=== PATIENT | male | born 1950 | race Caucasian/White ===

== ENCOUNTER 2017-06-27 07:59 | Emergency (ER) | payer MEDICARE ==
[2017-06-27 08:09] VITALS: BP 131/87
--- NOTE | 2017-06-27 08:58 | UC ---
Complaint Male HPI - HPI Summary HPI Summary: URINARY RETENTION X 1 DAY COULD NOT URINATE THIS MORNING , + BURNING, LOWER ABDOMINAL PRESSURE NO FEVER, NO CHILLS - History of Current Complaint Chief Complaint: UCGU Stated Complaint: URINARY COMPLAINT Time Seen by Provider: 06/27/17 08:11 Hx Obtained From: Patient Onset/Duration: Sudden Onset, Lasting Days - 1, Still Present Timing: Constant Severity Initially: Moderate Severity Currently: Severe Location: Penis Character: Sharp, Burning Aggravating Factor(s): Voiding Alleviating Factor(s): Nothing Associated Signs And Symptoms: Negative: Diaphoresis, Back Pain, Fever, Hematuria, Dysuria, Constipation, Blood in Stool, Rectal Pain, Appetite, Nausea , Vomiting(# Of Episodes =), Penile Swelling, Penile Discharge - Allergies/Home Medications Allergies/Adverse Reactions: Allergies Allergy/AdvReac Type Severity Reaction Status Date / Time Sodium Perborate Allergy Intermediate Unknown Verified 07/18/16 15:10 Reaction Details Statins Allergy Intermediate Unknown Verified 07/18/16 15:10 Reaction Details Sulfa Drugs Allergy Intermediate Unknown Verified 07/18/16 15:10 Reaction Details Diphenhydramine Allergy Palpitation Verified 06/27/17 08:09 [From Benadryl] s Home Medications: Home Medications Niacin ER CAP* [Niaspan ER CAP*] 1,000 mg PO DAILY 06/27/17 [History Confirmed 06/27/17] PMH/Surg Hx/FS Hx/Imm Hx GI/ History: Other - BPH Other GI/ History: BPH - Surgical History Surgical History: Yes Surgery Procedure, Year, and Place: elbow - Family History Known Family History: Negative: Cardiac Disease, Hypertension, Diabetes - Social History Alcohol Use: Daily Alcohol Amount: couple galsses wine Substance Use Type: None Smoking Status (MU): Never Smoked Tobacco - Immunization History Most Recent Influenza Vaccination: no Most Recent Tetanus Shot: Up to date Review of Systems Constitutional: Negative Skin: Negative Eyes: Negative ENT: Negative Respiratory: Negative Cardiovascular: Negative Gastrointestinal: Negative Genitourinary: Dysuria Is Patient Immunocompromised?: No All Other Systems Reviewed And Are Negative: Yes Physical Exam Triage Information Reviewed: Yes Appearance: Well-Appearing, Well-Nourished, Pain Distress Vital Signs: Initial Vital Signs Temp 97.8 F 06/27/17 08:02 Pulse 79 06/27/17 08:02 Resp 18 06/27/17 08:02 BP 131/87 06/27/17 08:02 Pulse Ox 100 06/27/17 08:02 Vital Signs Reviewed: Yes Eyes: Positive: Conjunctiva Clear ENT: Positive: Normal ENT inspection, Hearing grossly normal, Pharynx normal Neck exam: Normal Neck: Positive: Supple, Nontender, No Lymphadenopathy Respiratory: Positive: Chest non-tender, Lungs clear, Normal breath sounds, No respiratory distress Cardiovascular: Positive: RRR, No Murmur, Pulses Normal Abdomen Description: Positive: Soft, Other: - LOWER ABD TENDERNESS. Negative: CVA Tenderness (R), CVA Tenderness (L) Musculoskeletal Exam: Normal Neurological Exam: Normal Skin Exam: Other - [address] TO PL[address] A CATHETER AND FAILED Complaint Male Course/Dx - Course Course Of Treatment: WILL HAVE THE PT. GOT TO [facility] FOR EVAL AND TX. - Differential Dx/Diagnosis Provider Diagnoses: URIANRY RETENTION Discharge - Discharge Plan Condition: Stable Disposition: TRANS HIGHER LVL OF CARE FAC Patient Education Materials: Urinary Retention in Men (ED) Referrals: Ariadne GARBER,Espinoza Wyman [Primary Care Provider] - Additional Instructions: PLEASE GO TO [facility] ED FOR EVAL AND TX
== END 2017-06-27 08:56 | disposition short-term general hospital (02) ==
LOC: UCCORT 07:59
DX: R33.9 Retention of urine, unspecified (principal); N40.0 Benign prostatic hyperplasia without lower urinary tract symptoms; Z88.2 Allergy status to sulfonamides
CPT/HCPCS: 99212; G0463

== ENCOUNTER 2019-04-17 09:23 | Emergency (ER) | payer MEDICARE ==
[2019-04-17 09:41] VITALS: BP 126/76
--- NOTE | 2019-04-17 09:59 | UC ---
UC General HPI - HPI Summary HPI Summary: FELT A STING ON FRONT OF R ANKLE LAST PM. APPLYING TOPICAL TRIPLE ANTIBIOTIC AND ANTI-ITCH WITHOUT RELIEF. ALSO HAS SOME SPOTS ON FOREARMS AFTER PULLING WEEDS AND SPLITTING WOOD. STATES IN [place] ALL THE TIME. NO FEVER. - History of Current Complaint Chief Complaint: Earl Stated Complaint: RIGHT FOOT SKIN CONCERN Time Seen by Provider: 04/17/19 09:44 Hx Obtained From: Patient Pain Intensity: 0 Associated Signs & Symptoms: Negative: Fever - Allergy/Home Medications Allergies/Adverse Reactions: Allergies Allergy/AdvReac Type Severity Reaction Status Date / Time diphenhydramine Allergy Palpitation Verified 04/17/19 09:47 s fentanyl Allergy Anaphylatic Verified 04/17/19 09:42 Shock sodium perborate Allergy Unknown Uncoded 04/17/19 09:47 Reaction Details statins Allergy Unknown Uncoded 04/17/19 09:47 Reaction Details Home Medications: Home Medications Ezetimibe [Zetia] 10 mg PO DAILY 04/17/19 [History Confirmed 04/17/19] Tamsulosin HCl [Flomax] 0.4 mg PO DAILY 04/17/19 [History Confirmed 04/17/19] PMH/Surg Hx/FS Hx/Imm Hx - Additional Past Medical History Additional PMH: BPH Endocrine History: Dyslipidemia - Surgical History Surgical History: Yes Surgery Procedure, Year, and Place: elbow - Family History Known Family History: Negative: Cardiac Disease, Hypertension, Diabetes - Social History Occupation: Retired Alcohol Use: Daily Alcohol Amount: couple galsses wine Substance Use Type: None Smoking Status (MU): Never Smoked Tobacco - Immunization History Most Recent Influenza Vaccination: no Most Recent Tetanus Shot: Up to date Review of Systems All Other Systems Reviewed And Are Negative: No Constitutional: Negative: Fever, Chills Skin: Positive: Rash Musculoskeletal: Negative: Arthralgia Neurological: Negative: Weakness, Numbness Physical Exam Triage Information Reviewed: Yes Appearance: Well-Appearing Vital Signs: Initial Vital Signs Temp 98.2 F 04/17/19 09:36 Pulse 69 04/17/19 09:36 Resp 16 04/17/19 09:36 BP 126/76 04/17/19 09:36 Pulse Ox 99 04/17/19 09:36 Vital Signs Reviewed: Yes Eyes: Positive: Conjunctiva Clear Neck: Positive: Supple Respiratory: Positive: No respiratory distress Cardiovascular: Positive: RRR Musculoskeletal: Positive: ROM Intact, No Edema Neurological: Positive: Alert Psychological: Positive: Age Appropriate Behavior Skin Exam: Normal Skin: Positive: Rashes - 4 cm red rash R anterior ankle with a 2mm central- intact blister. surface is slightly textured. pt has about 12 red spots on R forearm and a few on L forearm without blistering, scale and not petechial. Course/Dx - Differential Dx - Multi-Symptom Differential Diagnoses: Other - Sting R ankle with possible reaction to triple antibiotic. second rash is c/w contact dermatitis on exposed forearms. no concern for bacterial infection, infestation, fungal infection or lyme disease. will d/c prior tx's and tx with po steroid and close f/u. - Diagnoses Provider Diagnosis: Sting, insect, Contact dermatitis Discharge - Sign-Out/Discharge Documenting (check all that apply): Patient Departure All imaging exams completed and their final reports reviewed: No Studies - Discharge Plan Condition: Stable Disposition: HOME Prescriptions: predniSONE [Prednisone 20 MG TAB] 40 mg PO DAILY 5 Days #10 tablet Patient Education Materials: Contact Dermatitis (ED), Insect Bite or Sting (ED) Referrals: Ariadne GARBER,Espinoza Wyman [Primary Care Provider] - 5 Days Additional Instructions: STOP THE TOPICAL ANTIBIOTIC AND ANTI ITCH SINCE THEY ARE NOT HELPING - Billing Disposition and Condition Condition: STABLE Disposition: Home - Attestation Statements Provider Attestation: I was available for consult. This patient was seen by the KAYLIE. The patient was not presented to , seen by or examined by fl -Irma Amato MD
== END 2019-04-17 10:15 | disposition home or self-care (01) ==
LOC: UCCORT 09:23
DX: W57.XXXA Bitten or stung by nonvenomous insect and other nonvenomous arthropods, initial encounter (principal); Y92.9 Unspecified place or not applicable; L25.9 Unspecified contact dermatitis, unspecified cause
CPT/HCPCS: 99212; G0463

== ENCOUNTER 2019-12-08 15:21 | Emergency (ER) | payer MEDICARE ==
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
[2019-12-08 18:00] VITALS: BP 132/83
--- NOTE | 2019-12-08 18:55 | UC ---
HPI Wound/Suture Re-check - HPI Summary HPI Summary: 69-year-old male presents for a wound check of an incision to his mid lower back from a mole removal he had performed 4 weeks ago. States sutures were removed 2 weeks ago and he had not been having any complications. Was at physical therapy today and it was noted that the wound had opened. Denies fever , chills, pain, or drainage. - History Of Current Complaint Chief Complaint: UCSkin Stated Complaint: LOWER BACK WOUND CHECK Time Seen by Provider: 12/08/19 18:28 Hx Obtained From: Patient Pain Intensity: 0 - Allergies/Home Medications Allergies/Adverse Reactions: Allergies Allergy/AdvReac Type Severity Reaction Status Date / Time diphenhydramine Allergy Palpitation Verified 12/08/19 17:57 s fentanyl Allergy Anaphylatic Verified 12/08/19 17:57 Shock meperidine [From Demerol] Allergy Unknown Verified 12/08/19 17:57 Reaction Details Sulfa (Sulfonamide Allergy Unknown Verified 12/08/19 17:57 Antibiotics) Reaction Details sodium perborate Allergy Unknown Uncoded 12/08/19 17:57 Reaction Details statins Allergy Unknown Uncoded 12/08/19 17:57 Reaction Details Home Medications: Home Medications Ezetimibe [Zetia] 10 mg PO DAILY 04/17/19 [History Confirmed 12/08/19] Tamsulosin HCl [Flomax] 0.4 mg PO DAILY 04/17/19 [History Confirmed 12/08/19] Multivitamins/Minerals TAB* [Theragran/minerals TAB*] 1 tab PO DAILY 12/08/19 [ History Confirmed 12/08/19] Forreston-3 Fatty Acids/Fish Oil [Fish Oil 1,200 mg Softgel] 1 each PO DAILY [History Confirmed 12/08/19] cephALEXin [Keflex] 500 mg PO TID #21 capsule 12/08/19 [Rx] PMH/Surg Hx/FS Hx/Imm Hx Endocrine History: Dyslipidemia GI/ History: Other - BPH - Surgical History Surgical History: Yes Surgery Procedure, Year, and Place: elbow. growth removed from lower back - Family History Known Family History: Negative: Cardiac Disease, Hypertension, Diabetes - Social History Occupation: Retired Lives: Alone Alcohol Use: Occasionally Alcohol Amount: couple galsses wine Substance Use Type: None Smoking Status (MU): Never Smoked Tobacco - Immunization History Most Recent Influenza Vaccination: no Most Recent Tetanus Shot: Up to date Review of Systems All Other Systems Reviewed And Are Negative: Yes Constitutional: Negative: Fever, Chills Skin: Positive: Other - See HPI Respiratory: Positive: Negative Cardiovascular: Positive: Negative Gastrointestinal: Positive: Negative Genitourinary: Positive: Negative Musculoskeletal: Positive: Negative Neurological/Mental Status: Positive: Negative Is Patient Immunocompromised?: No Physical Exam - Summary Physical Exam Summary: GENERAL APPEARANCE: Well developed, well nourished, alert and cooperative, and appears to be in no acute distress. CARDIAC: Normal S1 and S2. No S3, S4 or murmurs. Rhythm is regular. There is no peripheral edema, cyanosis or pallor. Extremities are warm and well perfused. Capillary refill is less than 2 seconds. Peripheral pulses intact. LUNGS: Clear to auscultation without rales, rhonchi, wheezing or diminished breath sounds. ABDOMEN: Positive bowel sounds. Soft, nondistended, nontender. No guarding or rebound. No masses or hepatosplenomegally. MUSKULOSKELETAL: ROM intact to all extremities. No joint erythema or tenderness. Normal muscular development. Normal gait. SKIN: Skin normal color, texture and turgor. 2.5 cm incision with complete dehiscence of the wound margins to the mid lumbar back. Erythema of the surrounding tissue without tenderness. No drainage noted from the wound. Triage Information Reviewed: Yes Vital Signs: Initial Vital Signs Temp 98.1 F 12/08/19 17:54 Pulse 75 12/08/19 17:54 Resp 16 12/08/19 17:54 BP 132/83 12/08/19 17:54 Pulse Ox 97 12/08/19 17:54 Vital Signs Reviewed: Yes Course/Dx - Course Course Of Treatment: 69-year-old male presents for a wound check of an incision to his mid lower back from a mole removal he had performed 4 weeks ago. States sutures were removed 2 weeks ago and he had not been having any complications. Was at physical therapy today and it was noted that the wound had opened. Denies fever , chills, pain, or drainage. Afebrile. Vital signs stable. Patient had a 2.5 cm incision with complete dehiscence of the wound margins to the mid lumbar back. Erythema of the surrounding tissue without tenderness. No drainage noted from the wound. Discussed with the patient that I'm concerned that the wound dehiscence is likely from some infection and therefore recommending that we should allow the wound to remain open and heal by secondary intention. The wound was dressed by the RN. I will place him on a course of cephalexin 500 mg 3 times a day 7 days to cover for any infection. He is to follow-up with dermatology for a recheck of the wound. Anticipatory guidance, wound care, and warning symptoms were reviewed with the patient. Verbalizes understanding and agrees with plan of care. - Differential Dx - Laceration/Wound Differential Diagnoses: Cellulitis, Dehiscence - Diagnosis Provider Diagnosis: Wound dehiscence Discharge ED - Sign-Out/Discharge Documenting (check all that apply): Patient Departure All imaging exams completed and their final reports reviewed: No Studies - Discharge Plan Condition: Stable Disposition: HOME Prescriptions: cephALEXin [Keflex] 500 mg PO TID #21 capsule Patient Education Materials: Wound Dehiscence (ED) Referrals: Ariadne GARBER,Espinoza Wyman [Primary Care Provider] - Additional Instructions: Your incision has opened (dehiscence) likely from some infection. We are not able to reclose the wound at this time due to risk of infection. We will start you on an antibiotic to treat for infection. The wound will slowly heal from the inside out but will take several weeks to fully heal. Start cephalexin 500 mg 1 capsule three times a day for 7 days. You may shower as normal. Do not submerge the wound under water to prevent infection. Keep the wound covered with a bandage. This should be changed at least once a day or any time the dressing becomes wet or soiled. Use acetaminophen (Tylenol) or ibuprofen (Advil, Motrin) according to directions as needed for pain. Follow up with your manager emergency department who performed the procedure for re-evaluation of the wound. Watch for signs of infection including fever greater than 100.5 F, severe pain not managed with pain medication, redness that spreads, swelling of the hand/ fingers, or pus draining from the wound. Seek immediate medical attention should any of these occur. - Billing Disposition and Condition Condition: STABLE Disposition: Home - Attestation Statements Provider Attestation: This patient was not seen by me. I was available for consult. Chart reviewed. BETTY
== END 2019-12-08 19:15 | disposition home or self-care (01) ==
LOC: UCCORT 15:21
DX: T81.30XA Disruption of wound, unspecified, initial encounter (principal); E78.5 Hyperlipidemia, unspecified; N40.0 Benign prostatic hyperplasia without lower urinary tract symptoms; Z88.5 Allergy status to narcotic agent; Z88.2 Allergy status to sulfonamides; Z88.8 Allergy status to other drugs, medicaments and biological substances; Z79.899 Other long term (current) drug therapy; Y84.8 Other medical procedures as the cause of abnormal reaction of the patient, or of later complication, without mention of misadventure at the time of the procedure; Y92.9 Unspecified place or not applicable
CPT/HCPCS: 99212; G0463